=== PATIENT | female | born 1980 | race Asian ===

== ENCOUNTER 2021-05-31 00:33 | Emergency (ER) | payer OTHER ==
[~2021-05-31] VITALS: Ht 154.9 cm; Wt 63.0 kg
[2021-05-31] MEDS ORDERED: ASPIRIN 81 MG TABLET CHEW PO ONE (01:00)
[2021-05-31 01:07] LABS: BASOPHILS % (AUTO) 1 % (0-1); EOSINOPHILS % (AUTO) 2 % (1-7); LYMPHOCYTES % (AUTO) 40 % (22-44); MEAN PLATELET VOLUME 8.2 fL (7.4-10.4); MONOCYTES % (AUTO) 7 % (2-9); NEUTROPHILS % (AUTO) 51 % (42-75); PLATELET COUNT 227 x10^3/uL (130-400); RED BLOOD COUNT 4.16 x10^6/uL (3.82-5.3); RED CELL DISTRIBUTION WIDTH 12.8 % (9.6-15.2)
[2021-05-31 01:17] LABS: ALANINE AMINOTRANSFERASE 41 U/L (12-78); ALBUMIN 3.9 g/dL (3.4-5.0); ANION GAP 5 mmol/L (5-15); CALCIUM 8.9 mg/dL (8.5-10.1); CHLORIDE 107 mmol/L (98-107); CREATININE 0.73 mg/dL (0.55-1.02)
[2021-05-31 01:22] LABS: ALKALINE PHOSPHATASE 55 U/L (45-117); BILIRUBIN,TOTAL 0.2 mg/dL (0.2-1.0); TOTAL PROTEIN 7.6 g/dL (6.4-8.2); TROPONIN I < 0.015 ng/mL (0.000-0.045)
[2021-05-31 01:54] LABS: FREE T4 (FREE THYROXINE) 0.91 ng/dL (0.76-1.46)
--- NOTE | 2021-05-31 03:39 | NUR ---
PT STATES THAT HER BLOOD PRESSURE WAS VERY HIGH OVER THE 160'S SYSTOLIC SO SHE CALLED [facility], PT SAYS SHE COULD FEEL HER HEART POUNDING WITH PALPITATIONS, AND FELT DIZZY. PT REPORTS FEELING PRESSURE IN THE CHEST AREA. PT ASKING TO BE TESTED FOR COVID. PT ATTACHED TO CARD/SP02/BP MONITORS. VSS. NADN BED IN LOW POSITION, RAILS ENAGGED, CALL LIGHT ON LAP. BLLNAKETS GIVEN. DIRECTOR OF SPECIAL EDUCATION USED FOR BULGARIAN TRANSLATION.
--- NOTE | 2021-05-31 04:34 | NUR ---
[facility] NOT WORKING FOR WEDNESDAY AND WEDNESDAY. USING PT PHONE OF RIGHT NOW TO GET BASIC INFORMATION.
[2021-05-31] MEDS ORDERED: ASPIRIN 81 MG TABLET CHEW ONE (04:58)
[2021-05-31 05:44] VITALS: BP 117/78
== END 2021-05-31 05:46 | disposition home or self-care (01) ==
LOC: ED 05:30
DX: F41.1 Generalized anxiety disorder (principal); I10 Essential (primary) hypertension; R00.2 Palpitations
CPT/HCPCS: 36415; 71045; 80053; 84439; 84443; 84484; 84703; 85025; 93005; 99285